=== PATIENT | female | born 1985 | race Caucasian/White ===

== ENCOUNTER 2017-01-23 15:45 | Emergency (ER) | payer MEDICAID ==
[2017-01-23 16:45] VITALS: BP 114/68; PULSE 72; RESP 16; TEMP 98.6; O2SAT 96
--- NOTE | 2017-01-23 17:14 | UCPHY ---
H & P Patient Type: Established HPI/ROS: CHIEF COMPLAINT: Pelvic pain. HISTORY OF PRESENT ILLNESS: The patient is a 31-year-old female who presents with severe pelvic pain for the last 4 months. She has seen her primary care provider and [employer]. She has had negative ultrasounds (external and vaginal) and negative blood cultures. Her doctors have discovered hematuria which she reports has been chronic. She denies dysuria, , fever, syncope, dizziness, or other complaints. She was referred to multiple urologists but they have not accepted Medicaid. She presents for the most part seeking a different urologist follow up. Part of the workup today has included ultrasound of the kidneys as well as the bladder. Further she has had over 8 prior urinalyses. Today it all having culture negative, she continues to have hematuria REVIEW OF SYSTEMS: Constitutional: No fever, no chills. Gastrointestinal: No nausea vomiting or diarrhea. No abdominal pain. Genitourinary: As above. Past Medical/Surgical History: Denies. Social History: Denies. Smoking Status: Never smoked Physical Exam: General Appearance: Alert, no distress. Afebrile. Normal phonation. No respiratory distress. Abdomen: Soft and nontender, no masses, bowel sounds normal. Skin: no rashes. Musculoskeletal: No joint swelling. Extremities: No edema. Psychiatric: nl affect. Politely frustrated Constitutional: Initial Vital Signs Temperature (C) 37 C 01/23/17 16:39 Heart Rate 72 01/23/17 16:39 Respiratory Rate 16 01/23/17 16:39 Blood Pressure 114/68 01/23/17 16:39 O2 Sat (%) 96 01/23/17 16:39 O2 Delivery Mode Room Air Allergies/Adverse Reactions: latex Allergy (Verified 01/23/17 16:45) Home Medications: Medication Instructions Recorded No Home Meds 07/13/15 Medical Decision Making ED Course/Re-evaluation: Urinalysis shows hematuria Culture ordered Given the background of her prior culture negative urines, no antibiotics needed at this time Differential Diagnosis: Differential diagnosis includes but is not limited to: Urinary tract infection, pyelonephritis, cystitis, ureterolithiasis, kidney stone, urinary retention, interstitial cystitis.. - Data Points Laboratory Results: 01/23/17 17:15 Urine Color YELLOW Urine Appearance HAZY Urine pH 5.5 (5.0-7.5) Ur Specific [place] 1.010 (1.002-1.030) Urine Protein NEGATIVE (NEGATIVE) Urine Ketones NEGATIVE (NEGATIVE) Urine Blood 3+ H (NEGATIVE) Urine Nitrate NEGATIVE (NEGATIVE) Urine Bilirubin NEGATIVE (NEGATIVE) Urine Urobilinogen 0.2 EU EU (0.2-1.0) Ur Leukocyte Esterase NEGATIVE (NEGATIVE) Urine RBC 25-50 /hpf H /hpf (0-3) Urine WBC OCCASIONAL /hpf /hpf (0-3) Ur Epithelial Cells 1+ /lpf /lpf (NONE-1+) Urine Bacteria 1+ /hpf H /hpf (NONE SEEN) Urine Mucus TRACE /lpf /lpf (NONE-1+) Urine Yeast OCCASIONAL /hpf H /hpf (NONE SEEN) Ur Culture Indicated? INDICATED H (NI) Urine Glucose NEGATIVE (NEGATIVE) Departure - Departure Disposition: Home, Routine, Self-Care Clinical Impression: Pelvic pain, Interstitial cystitis Condition: Good Instructions: Pelvic Pain in Women (ED) Additional Instructions: Call a urologist on Thursday to set up an appointment. We have provided you multiple referrals to try. Also, [facility] is a group through which you can try to seek a urologist that accepts medicaid if the other options do not work. Return for any serious worsening of condition. Referrals: Jos Dunn MD [Medical Doctor] - As per Instructions [facility],. [Clinic] - As per Instructions [facility],. [Edm Groups for Call Sched] - As per Instructions - PQRS PQRS Measurement: Not applicable Report Scribed for: Kash Roman Report Scribed by: Crescencio Brown Date of Report: 01/23/17 Time of Report: 17:13 Physician Review and Approval Statement: 01/23/17 17:13 Portions of this note were transcribed by a medical detail representative. I personally performed a history, physical exam, medical decision making, and confirmed accuracy of information the transcribed note.
[2017-01-23 17:27] LABS: COLOR YELLOW; LEUKOCYTE ESTERASE,URINE NEGATIVE (NEGATIVE); NITRITE,URINE NEGATIVE (NEGATIVE); PH,URINE 5.5 (5.0-7.5)
[2017-01-23 17:37] LABS: BACTERIA 1+ /hpf (NONE SEEN); MUCUS TRACE /lpf (NONE-1+); RBC,URINE 25-50 /hpf (0-3); WBC,URINE OCCASIONAL /hpf (0-3); YEAST OCCASIONAL /hpf (NONE SEEN)
== END 2017-01-23 18:11 | disposition home or self-care (01) ==
LOC: CED 15:45
DX: R10.2 Pelvic and perineal pain (principal); R31.9 Hematuria, unspecified
CPT/HCPCS: 81003-PO; 81015-PO; G0463-PO